=== PATIENT | female | born 2000 | race Two or more races ===

== ENCOUNTER 2022-02-10 11:21 | Emergency (ER) | payer OTHER ==
[~2022-02-10] VITALS: Ht 152.4 cm; Wt 47.6 kg
[2022-02-10] MEDS ORDERED: PRENATAL + DHA1 EAC1 PO (11:42)
== END 2022-02-10 14:16 | disposition home or self-care (01) ==
LOC: ER 11:21
DX: S39.81XA Other specified injuries of abdomen, initial encounter (principal); O26.891 Other specified pregnancy related conditions, first trimester; V49.9XXA Car occupant (driver) (passenger) injured in unspecified traffic accident, initial encounter; Y93.9 Activity, unspecified; Y92.413 State road as the place of occurrence of the external cause; Z3A.10 10 weeks gestation of pregnancy

== ENCOUNTER 2022-05-08 11:51 | Emergency (ER) | payer OTHER ==
[~2022-05-08] VITALS: Ht 152.4 cm; Wt 52.2 kg
[~2022-05-08 11:51] MED LIST: PRENATAL + DHA1 EAC1 PO
[2022-05-08] MEDS ORDERED: ZOFRAN8 MG PO (18:21)
[2022-05-09] MEDS ORDERED: PEPCID AC20 MG PO (00:40)
== END 2022-05-08 18:25 | disposition home or self-care (01) ==
LOC: ER 11:51
DX: O21.9 Vomiting of pregnancy, unspecified (principal); Z3A.23 23 weeks gestation of pregnancy; Z91.018 Allergy to other foods; Z91.010 Allergy to peanuts

== ENCOUNTER 2022-05-08 21:18 | Emergency (ER) | payer OTHER ==
[~2022-05-08] VITALS: Ht 152.4 cm; Wt 52.2 kg
[~2022-05-08 21:18] MED LIST changes: +ZOFRAN8 MG PO
[2022-05-09] MEDS ORDERED: PEPCID AC20 MG PO (00:40)
== END 2022-05-09 00:52 | disposition home or self-care (01) ==
LOC: ER 21:18
DX: O26.892 Other specified pregnancy related conditions, second trimester (principal); Z3A.23 23 weeks gestation of pregnancy; R55 Syncope and collapse; E16.2 Hypoglycemia, unspecified; Z20.822 Contact with and (suspected) exposure to COVID-19; Z91.018 Allergy to other foods; Z91.010 Allergy to peanuts

== ENCOUNTER 2022-08-22 17:56 | Inpatient (IN) | payer OTHER ==
[~2022-08-22] VITALS: Ht 152.4 cm; Wt 61.7 kg
[~2022-08-22 17:56] MED LIST changes: +PEPCID AC20 MG PO
== END 2022-08-25 13:10 | disposition home or self-care (01) | DRG 807 ==
LOC: LDR 17:56 → OB/GYN 17:56
PROVIDERS: ADMIT Obstetrics & Gynecology; ATTEND Obstetrics & Gynecology
PROC: 4A1HXCZ Monitoring of Products of Conception, Cardiac Rate, External Approach (ICD-10-PCS; 2022-08-22)
PROC: 10E0XZZ Delivery of Products of Conception, External Approach (ICD-10-PCS; principal; 2022-08-23)
DX: O80 Encounter for full-term uncomplicated delivery (principal); Z37.0 Single live birth; Z3A.38 38 weeks gestation of pregnancy; Z20.822 Contact with and (suspected) exposure to COVID-19